=== PATIENT | female | born 1950 | race Caucasian/White ===

== ENCOUNTER 2021-11-06 17:41 | Emergency (ER) | payer MEDICARE ==
[~2021-11-06 17:41] MED LIST: 3IN1 COMMODE XX; ACETAMINOPHEN325 MG PO; BISACODYL5 MG PO; CELEXA20 MG PO; DESENEX85 GM TOP; DULCOLAX5 MG PO; FENOFIBRATE145 MG PO; FEOSOL325 MG PO; MELATONIN5 MG PO; MILK OF MA400 MG/5 M PO; ONDANSETRON4 MG/2 M2 IVP; OXYCODONE-ACET1 EAC1 PO; PANTOPRAZOLE SO40 MG PO; PERCOCET 5-3251 EACH PO; VITAMIN D-32000 UNIT PO; XARELTO10 MG PO
[2021-11-06] MEDS ORDERED: PERCOCET 5-3251 EACH PO (21:54)
[2021-11-06] MEDS ORDERED: PREDNISONE 20MG20 MG PO (21:55)
== END 2021-11-06 22:10 | disposition home or self-care (01) ==
LOC: FER 17:41
DX: M54.31 Sciatica, right side (principal); Z88.5 Allergy status to narcotic agent; Z88.6 Allergy status to analgesic agent; Z88.7 Allergy status to serum and vaccine
CPT/HCPCS: 96372; J1100; J1885